=== PATIENT | female | born 1940 | race Caucasian/White ===

== ENCOUNTER 2019-02-22 14:04 | Emergency (ER) | payer OTHER ==
[~2019-02-22] VITALS: Ht 160 cm; Wt 54.0 kg
[2019-02-22] MEDS ORDERED: SYNTHROID88 MCG PO (14:26)
[2019-02-22] MEDS ORDERED: IRBESARTAN150 MG PO (14:26)
[2019-02-22] MEDS ORDERED: LOPRESSOR50 PO (14:26)
[2019-02-22] MEDS ORDERED: AZITHROMYCIN 2250 MG PO (14:27)
[2019-02-22] MEDS ORDERED: ALBUTEROL2.5 MG/31 INH (14:27)
[2019-02-22] MEDS ORDERED: HYDRALAZINE 2525 MG PO (14:27)
[2019-02-22] MEDS ORDERED: ADVAIR HFA 230M12 GM INH (14:27)
[2019-02-22] MEDS ORDERED: ZOCOR20 MG PO (14:27)
[2019-02-22] MEDS ORDERED: LUMIGAN2.5 M1 OPHTHALMIC (14:28)
[2019-02-22] MEDS ORDERED: PROAIR RESPICL90 MCG INH (14:28)
[2019-02-22] MEDS ORDERED: BIOTIN5000 MCG PO (14:29)
[2019-02-22] MEDS ORDERED: BAYER CHEWABLE81 MG PO (14:29)
[2019-02-22] MEDS ORDERED: VITAMIN D-32000 UNIT PO (14:29)
[2019-02-22 14:38] LABS: URINE BILIRUBIN NEGATIVE (Negative); URINE BLOOD NEGATIVE (Negative); URINE CLARITY CLEAR; URINE COLOR YELLOW; URINE GLUCOSE-RANDOM NEGATIVE (Negative); URINE KETONES NEGATIVE (Negative); URINE LEUKOCYTES-REFLEX NEGATIVE (Negative); URINE NITRITE-REFLEX NEGATIVE (Negative); URINE PROTEIN NEGATIVE (Negative); URINE SPECIFIC GRAVITY <= 1.005 (1.005-1.030); URINE UROBILINOGEN 0.2 E.U./dl (0.2-1.0)
[2019-02-22 14:54] LABS: ABSOLUTE LYMPHOCYTES 0.8 thou/uL (0.8-5.3); ABSOLUTE MONOCYTES 0.3 thou/uL (0.0-1.2); ABSOLUTE NEUTROPHILS 2.9 thou/uL (1.6-8.1); EOSINOPHILS 1.1 %; HEMATOCRIT 39.4 % (37.0-47.0); HEMOGLOBIN 13.2 gm/dL (12.0-15.0); LYMPHOCYTES 18.9 %; MCH 30.2 pg (26.0-34.0); MCHC 33.6 g/dL (28.0-37.0); MCV 89.7 fL (80.0-100.0); MONOCYTES 8.4 %; NUCLEATED RBCS 0 /100WBC; PLATELET COUNT* 235 thou/uL (150-400); POLYS 70.6 %; RBC 4.39 mil/uL (4.20-5.00); RDW-CV 12.6 % (10.5-14.5); WBC 4.1 thou/uL (4.0-11.0)
[2019-02-22 15:01] LABS: CALCIUM 8.8 mg/dL (8.5-10.1); CREATININE 0.6 mg/dL (0.6-1.3); POTASSIUM 4.3 mmol/L (3.5-5.1)
[2019-02-22 15:06] LABS: ALBUMIN 3.6 g/dL (3.4-5.0); TOTAL BILIRUBIN 0.5 mg/dL (<0.1-1.0); TOTAL PROTEIN 7.6 g/dL (6.4-8.2)
[2019-02-22 16:31] VITALS: BP 181/106
--- NOTE | 2019-02-23 15:49 | EKG ---
[place] [address] ELECTROCARDIOGRAM REPORT Name: ERASMO HATCH Room: [facility]#: [id number] Admission: 02/22/19 Attend Phys: Discharge: 02/22/19 Date of : 36 Report #: [id number] THIS REPORT FOR: //name// [facility] ED Test Date: 2019-02-22 Test Time: 15:04:47 Pat Name: ERASMO HATCH Department: Room: Gender: F [employer] Program Coordinator: : 1940 Requested By: Dana Moore Order Number: [id number] MD: Rodney Dillon Measurements Intervals [place] Rate: 62 P: -39 WV: 229 QRS: -47 QRSD: 98 T: 54 QT: 423 QTc: 430 Interpretive Statements Sinus rhythm Prolonged [place] interval Possible left atrial enlargement Left anterior fascicular block Cannot rule out anteroseptal infarct, old No previous ECG available for comparison Electronically Signed On 02-23-2019 15:48:51 CDT by Rodney Dillon [email or web address] <ELECTRONICALLY SIGNED> By: Rodney Dillon MD, [facility] 02/23/19 1548 1504 1504 Rodney Dillon MD, [facility] /EPI
== END 2019-02-22 16:32 | disposition left against medical advice (07) ==
LOC: M.ERS 14:04
PROVIDERS: Nurse Practitioner Family
DX: J18.1 Lobar pneumonia, unspecified organism (principal); R53.1 Weakness; E87.1 Hypo-osmolality and hyponatremia; E86.0 Dehydration; E03.9 Hypothyroidism, unspecified; I10 Essential (primary) hypertension; G89.29 Other chronic pain; Z79.899 Other long term (current) drug therapy; Z79.82 Long term (current) use of aspirin

== ENCOUNTER → 2019-12-23 | Outpatient (CLI) | payer MEDICARE ==
[~2019-12-23] MED LIST: ADVAIR HFA 230M12 GM INH; ALBUTEROL2.5 MG/31 INH; AZITHROMYCIN 2250 MG PO; BAYER CHEWABLE81 MG PO; BIOTIN5000 MCG PO; HYDRALAZINE 2525 MG PO; IRBESARTAN150 MG PO; LOPRESSOR50 PO; LUMIGAN2.5 M1 OPHTHALMIC; PROAIR RESPICL90 MCG INH; SYNTHROID88 MCG PO; VITAMIN D-32000 UNIT PO; ZOCOR20 MG PO
== END ==
LOC: M.INT 14:00
DX: M48.54XA Collapsed vertebra, not elsewhere classified, thoracic region, initial encounter for fracture (principal)

== ENCOUNTER → 2020-01-04 | Outpatient (CLI) | payer MEDICARE | LOC: M.MRI 12-24 10:53 | DX: M48.04 Spinal stenosis, thoracic region (principal); M48.54XA Collapsed vertebra, not elsewhere classified, thoracic region, initial encounter for fracture; M51.26 Other intervertebral disc displacement, lumbar region; M47.816 Spondylosis without myelopathy or radiculopathy, lumbar region; M48.07 Spinal stenosis, lumbosacral region ==

== ENCOUNTER → 2020-01-10 | Outpatient (CLI) | payer MEDICARE ==
[~2020-01-10] VITALS: Ht 157.5 cm; Wt 52.6 kg
[2020-01-10 08:40] VITALS: BP 193/80
[2020-01-10 08:47] LABS: HEMATOCRIT 28.6 % (37.0-47.0); HEMOGLOBIN 9.3 gm/dL (12.0-15.0); MCH 25.4 pg (26.0-34.0); MCHC 32.4 g/dL (28.0-37.0); MCV 78.6 fL (80.0-100.0); MPV 6.6 fl. (7.2-11.1); RBC 3.64 mil/uL (4.20-5.00); RDW-CV 16.2 % (10.5-14.5); WBC 6.9 thou/uL (4.0-11.0)
[2020-01-10 08:53] LABS: CALCIUM 8.4 mg/dL (8.5-10.1); CREATININE 0.7 mg/dL (0.6-1.3); POTASSIUM 4.2 mmol/L (3.5-5.1)
[2020-01-10 08:56] LABS: APTT 26.6 Seconds (25.0-31.3); PROTIME 10.6 Seconds (9.20-11.50)
[2020-01-10 08:58] LABS: ALBUMIN 3.5 g/dL (3.4-5.0); TOTAL BILIRUBIN 0.3 mg/dL (<0.1-1.0); TOTAL PROTEIN 7.5 g/dL (6.4-8.2)
[2020-01-10 10:50] VITALS: BP 180/78
== END | disposition home or self-care (01) ==
LOC: M.INT 07:44
PROVIDERS: Radiology Diagnostic Radiology
DX: M54.9 Dorsalgia, unspecified (principal); M80.08XA Age-related osteoporosis with current pathological fracture, vertebra(e), initial encounter for fracture; S22.070A Wedge compression fracture of T9-T10 vertebra, initial encounter for closed fracture; I10 Essential (primary) hypertension; E03.9 Hypothyroidism, unspecified; Z98.890 Other specified postprocedural states; Z79.899 Other long term (current) drug therapy; X58.XXXA Exposure to other specified factors, initial encounter; Y93.89 Activity, other specified; Y92.89 Other specified places as the place of occurrence of the external cause; Y99.8 Other external cause status

== ENCOUNTER → 2020-01-14 | Outpatient (CLI) | payer MEDICARE | LOC: M.RAD 13:21 | DX: M48.56XA Collapsed vertebra, not elsewhere classified, lumbar region, initial encounter for fracture (principal); M54.9 Dorsalgia, unspecified ==

== ENCOUNTER → 2020-03-27 | Outpatient (CLI) | payer MEDICARE ==
[~2020-03-27] MED LIST changes: +LIPITOR10 MG PO; +TRAMADOL 50 MG50 MG PO; +VITAMIN B12-FO1 EAC1 PO; +iron PO
== END ==
LOC: M.PC 00:58
PROVIDERS: ATTEND Physical Medicine & Rehabilitation
DX: S22.078A Other fracture of T9-T10 vertebra, initial encounter for closed fracture (principal); M51.34 Other intervertebral disc degeneration, thoracic region; M51.36 Other intervertebral disc degeneration, lumbar region; M47.816 Spondylosis without myelopathy or radiculopathy, lumbar region; M47.814 Spondylosis without myelopathy or radiculopathy, thoracic region; I71.9 Aortic aneurysm of unspecified site, without rupture; X58.XXXA Exposure to other specified factors, initial encounter; Y93.89 Activity, other specified; Y92.89 Other specified places as the place of occurrence of the external cause; Y99.8 Other external cause status

== ENCOUNTER → 2020-03-29 | Outpatient (CLI) | payer MEDICARE | LOC: M.RAD 11:35 | PROVIDERS: ATTEND Physical Medicine & Rehabilitation | DX: M47.814 Spondylosis without myelopathy or radiculopathy, thoracic region (principal) ==

== ENCOUNTER → 2020-04-03 | Outpatient (CLI) | payer MEDICARE | END | disposition home or self-care (01) | LOC: M.PC 02:44 | PROVIDERS: ATTEND Physical Medicine & Rehabilitation | DX: M47.814 Spondylosis without myelopathy or radiculopathy, thoracic region (principal); Z79.899 Other long term (current) drug therapy; Z88.8 Allergy status to other drugs, medicaments and biological substances ==

== ENCOUNTER 2020-04-18 11:59 | Emergency (ER) | payer MEDICARE ==
[~2020-04-18] VITALS: Ht 162.6 cm; Wt 49.9 kg
[2020-04-18] MEDS ORDERED: AVAPRO 150 MG150 M1 PO (12:15)
[2020-04-18] MEDS ORDERED: ADVAIR 250-501 EACH INH (12:16)
[2020-04-18] MEDS ORDERED: ALIGN4 MG PO (12:17)
[2020-04-18] MEDS ORDERED: B12 ACTIVE1000 MCG PO (12:18)
[2020-04-18 13:16] LABS: HEMATOCRIT 37.5 % (37.0-47.0); HEMOGLOBIN 12.2 gm/dL (12.0-15.0); MCH 25.7 pg (26.0-34.0); MCHC 32.5 g/dL (28.0-37.0); MCV 79.2 fL (80.0-100.0); MPV 6.9 fl. (7.2-11.1); NUCLEATED RBCS 0 /100WBC; PLATELET COUNT* 284 thou/uL (150-400); RBC 4.73 mil/uL (4.20-5.00); RDW-CV 26.7 % (10.5-14.5); WBC 7.6 thou/uL (4.0-11.0)
[2020-04-18 13:21] LABS: CALCIUM 8.3 mg/dL (8.5-10.1); CREATININE 0.7 mg/dL (0.6-1.3); POTASSIUM 4.2 mmol/L (3.5-5.1)
[2020-04-18 13:25] LABS: ALBUMIN 3.2 g/dL (3.4-5.0); TOTAL BILIRUBIN 0.6 mg/dL (<0.1-1.0); TOTAL PROTEIN 6.9 g/dL (6.4-8.2)
[2020-04-18 14:06] LABS: ABSOLUTE EOSINOPHILS 0.1 thou/uL (0.0-0.7); ABSOLUTE LYMPHOCYTES 0.5 thou/uL (0.8-5.3); ABSOLUTE MONOCYTES 0.2 thou/uL (0.0-1.2); ABSOLUTE NEUTROPHILS 6.8 thou/uL (1.6-8.1); ANISOCYTOSIS 2+; PLATELET ESTIMATE ADEQUATE; POIKILOCYTOSIS 1+
[2020-04-18 15:09] LABS: URINE BILIRUBIN NEGATIVE (Negative); URINE BLOOD TRACE (Negative); URINE CLARITY CLEAR; URINE COLOR YELLOW; URINE GLUCOSE-RANDOM NEGATIVE (Negative); URINE KETONES NEGATIVE (Negative); URINE NITRITE-REFLEX NEGATIVE (Negative); URINE PROTEIN NEGATIVE (Negative); URINE UROBILINOGEN 0.2 E.U./dl (0.2-1.0)
[2020-04-18 15:12] LABS: URINE LEUKOCYTES-REFLEX 2+ (Negative)
[2020-04-18 15:21] LABS: BACTERIA-REFLEX >30 Many /HPF (None Seen); CASTS None Seen /LPF (None Seen); CRYSTALS None Seen /LPF (None Seen); SQUAMOUS 0-3 Few /LPF (0-3); URINE RBC 0-2 Rare /HPF (0-2); URINE WBC-REFLEX >25 Many /HPF (0-5)
[2020-04-18] MEDS ORDERED: NORCO 5-325 TA1 EAC2 PO (15:34)
[2020-04-18] MEDS ORDERED: MACROBID 100 M100 M2 PO (15:37)
--- NOTE | 2020-04-18 15:42 | EKG ---
[place] [address] ELECTROCARDIOGRAM REPORT Name: ERASMO HATCH Room: [facility]#: [id number] Admission: 04/18/20 Attend Phys: Discharge: Date of : 36 Date of Service: 04/18/20 1324 Report #: [id number] THIS REPORT FOR: //name// [facility] ED Test Date: 2020-04-18 Test Time: 13:24:54 Pat Name: ERASMO HATCH Department: Room: Gender: F Magician/Illusionist: [facility] : 1940 Requested By: Dana Moore Order Number: [id number] MD: Rodney Dillon Measurements Intervals [place] Rate: 71 P: 6 [place]: 183 QRS: -59 QRSD: 96 T: 68 QT: 414 QTc: 450 Interpretive Statements Sinus rhythm Ventricular premature complex Left anterior fascicular block Possible anteroseptal infarct, old Compared to ECG 02/22/2019 15:04:47 Ventricular premature complex(es) now present First degree AV block no longer present Myocardial infarct finding still present Electronically Signed On 04-18-2020 15:42:06 CDT by Rodney Dillon [email or web address] <ELECTRONICALLY SIGNED> By: Rodney Dillon MD, FACC 04/18/20 1542 1324 1324 Rodney Dillon MD, FACC /EPI
[2020-04-18 15:57] VITALS: BP 169/69
== END 2020-04-18 15:58 | disposition home or self-care (01) ==
LOC: M.ERS 11:59
PROVIDERS: Nurse Practitioner Family
DX: S32.19XA Other fracture of sacrum, initial encounter for closed fracture (principal); I10 Essential (primary) hypertension; I71.2 Thoracic aortic aneurysm, without rupture; E03.9 Hypothyroidism, unspecified; G89.29 Other chronic pain; Z96.641 Presence of right artificial hip joint; Z88.1 Allergy status to other antibiotic agents; Z88.2 Allergy status to sulfonamides; Z88.8 Allergy status to other drugs, medicaments and biological substances; W18.39XA Other fall on same level, initial encounter; Y93.89 Activity, other specified; Y92.89 Other specified places as the place of occurrence of the external cause; Y99.8 Other external cause status